=== PATIENT | male | born 2000 | race Caucasian/White ===

== ENCOUNTER 2021-06-30 11:25 | Emergency (ER) | payer OTHER ==
[~2021-06-30] VITALS: Ht 177.8 cm; Wt 88.1 kg
[2021-06-30 14:18] LABS: RSV AMPLIFICATION NEGATIVE (NEGATIVE)
--- NOTE | 2021-06-30 15:02 | REP ---
INDICATION: R inguinal canal bulge with tenderness. COMPARISON: None. TECHNIQUE: Ultrasound FINDINGS: Ultrasound of the right inguinal region shows multiple enlarged lymph nodes measuring 1.9 x 1.2 x 1.1, 1.7 x 1 x 0.7, 1.5 x 0.9 x 1, 1.4 x 1 x 1.2, 1.4 x 0.9 x 0.9, 2.3 x 0.5 x 0.5 and 1.5 x 0.7 x 1.4 cm. There is no mass separate from the lymph nodes and no fluid collection. No inguinal hernia is evident. IMPRESSION: Right inguinal adenopathy. <Electronically signed by Mati Vela > 06/30/21 [id number]
[2021-06-30] MEDS ORDERED: NS 1,000 ML IV ONE (15:50)
[2021-06-30] MEDS ORDERED: ACETAMINOPHEN 500 MG TAB PO ONE (15:50)
[2021-06-30 16:04] LABS: BASO % 0.7 % (0.0-1.0); EOS % 0.7 % (0.0-3.0); HEMATOCRIT 49.8 % (42.0-52.0); HEMOGLOBIN 16.5 g/dl (13.5-17.5); LYMPH % 16.4 % (24.0-44.0); MEAN CORPUSCULAR HEMOGLOBIN 29.6 pg (27.0-33.0); MEAN CORPUSCULAR HGB CONC 33.1 g/dl (32.0-36.5); MEAN CORPUSCULAR VOLUME 89.4 fl (80.0-96.0); MONO # 0.5 10^3/uL (0.0-0.8); MONO % 7.8 % (2.0-8.0); NEUTROPHILS # 4.4 10^3/uL (1.5-8.5); NEUTROPHILS % 74.1 % (36.0-66.0); PLATELET COUNT, AUTOMATED 199 10^3/uL (150-450); RED BLOOD COUNT 5.57 10^6/uL (4.30-6.10); WHITE BLOOD COUNT 5.9 10^3/uL (4.0-10.0)
[2021-06-30 16:28] LABS: ALT/SGPT 50 U/L (12-78); BILIRUBIN,DIRECT < 0.1 MG/DL (0.0-0.2); BILIRUBIN,TOTAL 0.4 MG/DL (0.2-1.0); LIPASE 244 U/L (73-393); TOTAL PROTEIN 6.9 GM/DL (6.4-8.2)
[2021-06-30 16:39] LABS: MONO SCRN NEGATIVE (NEGATIVE)
[2021-06-30 17:36] VITALS: BP 131/61
[2021-06-30 18:20] LABS: GC DNA AMPLIFICATION NEGATIVE (NEGATIVE)
--- NOTE | 2021-07-01 13:06 | ED PDOC ---
Post-Departure Follow-Up pelvic us faxed to jeffery manriquez for fu Amber Archibald MD Jul 01, 2021 13:06
== END 2021-06-30 18:17 | disposition home or self-care (01) ==
LOC: M ED 11:25
DX: R59.0 Localized enlarged lymph nodes (principal); Z77.098 Contact with and (suspected) exposure to other hazardous, chiefly nonmedicinal, chemicals